=== PATIENT | male | born 1995 | race Two or more races ===

== ENCOUNTER 2021-09-13 20:12 | Emergency (ER) | payer OTHER ==
[~2021-09-13] VITALS: Ht 165.1 cm; Wt 75.3 kg
[2021-09-13] MEDS ORDERED: DESCOVY 200-251 EACH PO (20:24)
== END 2021-09-13 21:06 | disposition home or self-care (01) ==
LOC: ER 20:12
DX: T78.49XA Other allergy, initial encounter (principal); T78.1XXA Other adverse food reactions, not elsewhere classified, initial encounter; T78.3XXA Angioneurotic edema, initial encounter; X58.XXXA Exposure to other specified factors, initial encounter

== ENCOUNTER 2022-03-20 09:01 | Emergency (ER) | payer OTHER ==
[~2022-03-20] VITALS: Ht 165.1 cm; Wt 73.5 kg
[~2022-03-20 09:01] MED LIST: DESCOVY 200-251 EACH PO
== END 2022-03-20 09:54 | disposition home or self-care (01) ==
LOC: ER 09:01
DX: J03.80 Acute tonsillitis due to other specified organisms (principal); Z88.8 Allergy status to other drugs, medicaments and biological substances; Z91.013 Allergy to seafood